=== PATIENT | male | born 1945 | race Caucasian/White ===

== ENCOUNTER 2017-02-11 04:27 | Inpatient (IN) | payer MEDICARE ==
[~2017-02-11] VITALS: Ht 175.3 cm; Wt 81.6 kg
[2017-02-11] MEDS ORDERED: ONDANSETRON 2MG/ML, 2ML ONE (05:26)
[2017-02-11] MEDS ORDERED: MORPHINE SULFATE 4 MG/ML, 1ML ONE ×2 (05:26→06:57)
[2017-02-11] MEDS ORDERED: ONDANSETRON 2MG/ML, 2ML IVPush ONE (05:30)
[2017-02-11] MEDS ORDERED: SODIUM CHLORIDE 0.9% 1,000ML IVBOLUS ONE (05:30)
[2017-02-11] MEDS ORDERED: SODIUM CHLORIDE FLUSH 10ML SYR IVF ONE (05:30)
[2017-02-11] MEDS: MORPHINE SULFATE 4 MG/ML, 1ML IVPush PRN ×2 (05:41→06:59)
[2017-02-11] MEDS ORDERED: NYSTATIN TOPICAL POWDER 15GM TP STA (05:56)
[2017-02-11 06:07] LABS: HEMATOCRIT 43.1 % (39.2-51.8); WHITE BLOOD COUNT 21.1 x10^3/uL (3.4-10)
[2017-02-11 06:15] LABS: ASPARTATE AMINO TRANSFERASE 19 U/L (15-37); BLOOD UREA NITROGEN 23 mg/dL (7-18)
[2017-02-11] MEDS ORDERED: OMNIPAQUE 350 MG/ML, 100ML BOTTLE ONE (06:43)
[2017-02-11] MEDS ORDERED: SODIUM CHLORIDE 0.9% 1,000 ML IV ONE (07:17)
[2017-02-11] MEDS ORDERED: CEFTRIAXONE PMX 1GM/50ML 50 ML IV ONE (07:30)
[2017-02-11] MEDS ORDERED: POTASSIUM CHLORIDE 40 MEQ in SODIUM CHLORIDE 0.9% 500 ML IV ONE (07:30)
[2017-02-11 07:38] LABS: DIFF TOTAL CELLS COUNTED 100 CELL DIFF
[2017-02-11 07:41] LABS: VERIFY COUNTS? YES
[2017-02-11] MEDS ORDERED: LORazepam 2 MG/ML, 1ML ONE (08:17)
[2017-02-11] MEDS ORDERED: CEFTRIAXONE PMX 1GM/50ML 50 ML ONE (08:18)
[2017-02-11] MEDS ORDERED: LORazepam 2 MG/ML, 1ML IVPush ONE (08:30)
[2017-02-11] MEDS ORDERED: NS + 20MEQ KCL 1,000 ML IV SCH (09:51)
[2017-02-11] MEDS ORDERED: morphine SULFATE 10 MG/ML, 1ML IVPush PRN (10:00)
[2017-02-11] MEDS ORDERED: HYDROcodone/APAP 5/325 TABLET PO PRN (10:00)
[2017-02-11] MEDS ORDERED: ACETAMINOPHEN 325 MG TABLET PO PRN (10:00)
[2017-02-11] MEDS: NYSTATIN TOPICAL POWDER 15GM TP SCH ×3 (11:00→21:00)
[2017-02-11] MEDS ORDERED: EPINEPHRINE 1 MG/ML, 1ML ONE (12:11)
[2017-02-11] MEDS ORDERED: BUPIVACAINE/PF 0.5% ONE (12:11)
[2017-02-11] MEDS ORDERED: MAGNESIUM SULFATE PMX 4GM/100M 100 ML IV ONE (12:30)
[2017-02-11 12:37] LABS: BLOOD UREA NITROGEN 20 mg/dL (7-18)
[2017-02-11] MEDS ORDERED: FENTANYL PF 100 MCG/2ML ONE ×4 (13:11→19:13)
[2017-02-11] MEDS ORDERED: MIDAZOLAM 1 MG/ML, 2ML ONE (13:11)
[2017-02-11] MEDS ORDERED: ROCURONIUM 10 MG/ML ONE (13:20)
[2017-02-11] MEDS ORDERED: GLYCOPYRROLATE 0.2MG/1ML, 5ML ONE (13:20)
[2017-02-11] MEDS ORDERED: DEXAMETHASONE 4 MG/ML, 1ML ONE (13:20)
[2017-02-11] MEDS ORDERED: PROPOFOL 10 MG/ML, 20ML ONE (13:20)
[2017-02-11] MEDS ORDERED: morphine SULFATE 10 MG/ML, 1ML IV PRN (14:30)
[2017-02-11] MEDS ORDERED: KETOROLAC 30 MG/1 ML IV PRN (14:30)
[2017-02-11] MEDS ORDERED: METOCLOPRAMIDE 5 MG/ML, 2ML IV PRN (14:30)
[2017-02-11] MEDS ORDERED: LABETALOL 5MG/ML, 20ML IV PRN (14:30)
[2017-02-11] MEDS ORDERED: FENTANYL PF 100 MCG/2ML IV PRN (14:30)
[2017-02-11] MEDS ORDERED: ONDANSETRON 2MG/ML, 2ML IVPush PRN (14:30)
[2017-02-11] MEDS ORDERED: MEPERIDINE/PF 25MG/0.5ML IVPush PRN (14:30)
[2017-02-11] MEDS ORDERED: METOPROLOL 1 MG/ML, 5ML IV PRN (14:30)
[2017-02-11] MEDS ORDERED: MIDAZOLAM 1 MG/ML, 2ML IV PRN (14:30)
[2017-02-11] MEDS: HYDROmorphone 1 MG/ML, 1ML IV PRN ×5 (17:50→19:29)
[2017-02-11] MEDS ORDERED: HYDROmorphone 1 MG/ML, 1ML ONE ×2 (18:24→19:14)
[2017-02-11 20:19] VITALS: BP 105/72
[2017-02-11] MEDS ORDERED: ONDANSETRON 2MG/ML, 2ML IV PRN (21:00)
[2017-02-11] MEDS ORDERED: MORPHINE SULFATE 4 MG/ML, 1ML IV PRN (21:00)
[2017-02-11] MEDS: CEFOTETAN PMX 2GM/50ML 50 ML IV SCH (23:06)
[2017-02-11] MEDS: FAMOTIDINE 20 MG/2 ML IVPush SCH (23:08)
[2017-02-11] MEDS: METRONIDAZOLE PMX 500MG/100ML 100 ML IV SCH (23:09)
[2017-02-11] MEDS: D5%-0.9% NACL+KCL 20MEQ 1,000 ML IV SCH (23:09)
[2017-02-12] VITALS (7 sets, daily range): BP systolic 101–116; BP diastolic 67–76
[2017-02-12 04:48] LABS: HEMATOCRIT 41.2 % (39.2-51.8); HEMOGLOBIN 13.8 g/dL (13.7-18.0); WHITE BLOOD COUNT 32.8 x10^3/uL (3.4-10)
[2017-02-12] MEDS: NYSTATIN TOPICAL POWDER 15GM TP SCH ×4 (04:50→21:00)
[2017-02-12] MEDS: METRONIDAZOLE PMX 500MG/100ML 100 ML IV SCH ×3 (04:50→22:12)
[2017-02-12 05:01] LABS: BLOOD UREA NITROGEN 21 mg/dL (7-18)
[2017-02-12 05:19] LABS: ASPARTATE AMINO TRANSFERASE 85 U/L (15-37)
[2017-02-12 05:35] LABS: DIFF TOTAL CELLS COUNTED 100 CELL DIFF
[2017-02-12 05:37] LABS: VERIFY COUNTS? YES
[2017-02-12] MEDS: D5%-0.9% NACL+KCL 20MEQ 1,000 ML IV SCH (07:30)
[2017-02-12] MEDS ORDERED: CEFTRIAXONE PMX 1GM/50ML 50 ML IV SCH (08:00)
[2017-02-12] MEDS: FAMOTIDINE 20 MG/2 ML IVPush SCH ×2 (08:45→20:46)
[2017-02-12] MEDS: SODIUM CHLORIDE 0.9% 1,000 ML IV SCH ×2 (08:50→17:56)
[2017-02-12] MEDS: CEFOTETAN PMX 2GM/50ML 50 ML IV SCH ×2 (08:55→20:45)
[2017-02-13 01:20] VITALS: BP 126/81
[2017-02-13] MEDS: SODIUM CHLORIDE 0.9% 1,000 ML IV SCH ×2 (03:45→14:44)
[2017-02-13] MEDS: NYSTATIN TOPICAL POWDER 15GM TP SCH ×4 (05:27→21:17)
[2017-02-13] MEDS: METRONIDAZOLE PMX 500MG/100ML 100 ML IV SCH ×3 (05:27→22:01)
[2017-02-13 06:03] LABS: HEMATOCRIT 33.5 % (39.2-51.8); HEMOGLOBIN 11.2 g/dL (13.7-18.0); WHITE BLOOD COUNT 26.8 x10^3/uL (3.4-10)
[2017-02-13 06:21] LABS: DIFF TOTAL CELLS COUNTED 100 CELL DIFF
[2017-02-13 06:24] LABS: VERIFY COUNTS? YES
[2017-02-13 06:29] LABS: ASPARTATE AMINO TRANSFERASE 20 U/L (15-37); BLOOD UREA NITROGEN 20 mg/dL (7-18)
[2017-02-13 09:00] VITALS: BP 118/70
[2017-02-13] MEDS: FAMOTIDINE 20 MG/2 ML IVPush SCH (09:30)
[2017-02-13] MEDS: CEFOTETAN PMX 2GM/50ML 50 ML IV SCH ×2 (09:30→21:19)
[2017-02-13 14:30] VITALS: BP 121/73
[2017-02-13] MEDS ORDERED: FAT EMULSIONS IV SCH (17:00)
[2017-02-13] MEDS ORDERED: SODIUM CHLORIDE 0.9% 1,000 ML IV SCH (17:00)
[2017-02-13] MEDS ORDERED: [UNRECOGNIZED DRUG - OTHER] IV SCH (17:00)
[2017-02-13] MEDS ORDERED: DEXTROSE 70% IV SCH (17:00)
[2017-02-13] MEDS ORDERED: AMINO ACID 10% IV SCH (17:00)
[2017-02-13] MEDS ORDERED: DEXTROSE 10% 500 ML IV PRN (17:00)
[2017-02-13] MEDS ORDERED: DEXTROSE 50%, 50ML SYRINGE IVPush PRN (17:00)
[2017-02-13 19:00] VITALS: BP 118/70
[2017-02-13] MEDS: INSULIN REGULAR MEDIUM DOSE Q6H X 48HRS SQ-INSULIN SCH (21:00)
[2017-02-14 01:00] VITALS: BP 116/66
[2017-02-14] MEDS: INSULIN REGULAR MEDIUM DOSE Q6H X 48HRS SQ-INSULIN SCH ×4 (03:00→20:59)
[2017-02-14] MEDS: METRONIDAZOLE PMX 500MG/100ML 100 ML IV SCH ×3 (05:39→22:11)
[2017-02-14] MEDS: NYSTATIN TOPICAL POWDER 15GM TP SCH ×4 (05:39→21:37)
[2017-02-14 06:21] LABS: HEMATOCRIT 27.9 % (39.2-51.8); HEMOGLOBIN 9.5 g/dL (13.7-18.0); WHITE BLOOD COUNT 19.1 x10^3/uL (3.4-10)
[2017-02-14 06:54] LABS: DIFF TOTAL CELLS COUNTED 100 CELL DIFF
[2017-02-14 06:56] LABS: VERIFY COUNTS? YES
[2017-02-14 06:59] LABS: ASPARTATE AMINO TRANSFERASE 24 U/L (15-37); BLOOD UREA NITROGEN 13 mg/dL (7-18)
[2017-02-14 08:10] VITALS: BP 130/72
[2017-02-14] MEDS ORDERED: POTASSIUM PHOSPHATE 44 MEQ in SODIUM CHLORIDE 0.9% 500 ML IV ONE (09:00)
[2017-02-14] MEDS: CEFOTETAN PMX 2GM/50ML 50 ML IV SCH ×2 (09:36→21:37)
[2017-02-14] MEDS ORDERED: POTASSIUM PHOSPHATE 88 MEQ in SODIUM CHLORIDE 0.9% 1,000 ML IV ONE (11:00)
[2017-02-14 14:30] VITALS: BP 133/74
[2017-02-14] MEDS ORDERED: DEXTROSE 70% IV SCH ×2 (17:00)
[2017-02-14] MEDS ORDERED: FAT EMULSIONS IV SCH ×2 (17:00)
[2017-02-14] MEDS ORDERED: [UNRECOGNIZED DRUG - OTHER] IV SCH (17:00)
[2017-02-14] MEDS ORDERED: [UNRECOGNIZED DRUG - OTHER] IV SCH (17:00)
[2017-02-14] MEDS ORDERED: AMINO ACID 10% IV SCH ×2 (17:00)
[2017-02-14 18:45] VITALS: BP 125/69
[2017-02-15 00:45] VITALS: BP 105/59
[2017-02-15 01:51] VITALS: BP 119/70
[2017-02-15] MEDS: INSULIN REGULAR MEDIUM DOSE Q6H X 48HRS SQ-INSULIN SCH ×3 (03:12→15:00)
[2017-02-15 04:36] LABS: HEMOGLOBIN 9.1 g/dL (13.7-18.0)
[2017-02-15 04:45] LABS: BLOOD UREA NITROGEN 10 mg/dL (7-18)
[2017-02-15] MEDS: NYSTATIN TOPICAL POWDER 15GM TP SCH ×4 (05:22→21:02)
[2017-02-15] MEDS: METRONIDAZOLE PMX 500MG/100ML 100 ML IV SCH ×3 (05:22→21:02)
[2017-02-15 07:46] VITALS: BP 129/70
[2017-02-15] MEDS: CEFOTETAN PMX 2GM/50ML 50 ML IV SCH ×2 (11:49→23:21)
[2017-02-15 12:35] VITALS: BP 125/65
[2017-02-15] MEDS: ENOXAPARIN 30 MG/0.3 ML SQ SCH ×2 (13:16→23:21)
[2017-02-15] MEDS ORDERED: DEXTROSE 70% IV SCH (17:00)
[2017-02-15] MEDS ORDERED: FAT EMULSIONS IV SCH (17:00)
[2017-02-15] MEDS ORDERED: [UNRECOGNIZED DRUG - OTHER] IV SCH (17:00)
[2017-02-15] MEDS ORDERED: AMINO ACID 10% IV SCH (17:00)
[2017-02-15] MEDS: FILTER, DISP 1.2 MICRON FOR TPN/PVN IV PRN (18:41)
[2017-02-15 19:36] VITALS: BP 149/84
[2017-02-16 02:20] VITALS: BP 110/72
[2017-02-16 05:04] LABS: BLOOD UREA NITROGEN 12 mg/dL (7-18)
[2017-02-16] MEDS: NYSTATIN TOPICAL POWDER 15GM TP SCH ×4 (05:09→21:37)
[2017-02-16] MEDS: METRONIDAZOLE PMX 500MG/100ML 100 ML IV SCH ×3 (05:09→21:37)
[2017-02-16 06:47] VITALS: BP 131/73
[2017-02-16] MEDS: INSULIN REGULAR MEDIUM DOSE QDAY SQ-INSULIN SCH (09:00)
[2017-02-16] MEDS: ENOXAPARIN 30 MG/0.3 ML SQ SCH ×2 (10:46→23:25)
[2017-02-16] MEDS: CEFOTETAN PMX 2GM/50ML 50 ML IV SCH ×2 (11:00→23:25)
[2017-02-16 12:27] VITALS: BP 130/79
[2017-02-16] MEDS: DEXTROSE 70% IV SCH ×2 (18:36→18:45)
[2017-02-16] MEDS: AMINO ACID 10% IV SCH ×2 (18:36→18:45)
[2017-02-16] MEDS: [UNRECOGNIZED DRUG - OTHER] IV SCH ×2 (18:36→18:45)
[2017-02-16] MEDS: FAT EMULSIONS IV SCH ×2 (18:36→18:45)
[2017-02-16] MEDS: FILTER, DISP 1.2 MICRON FOR TPN/PVN IV PRN (18:45)
[2017-02-16] MEDS ORDERED: ACETAMINOPHEN 325 MG TABLET PO PRN (19:30)
[2017-02-16] MEDS ORDERED: DEXTROSE 10% 500 ML IV PRN (19:30)
[2017-02-16] MEDS ORDERED: DEXTROSE 50%, 50ML SYRINGE IVPush PRN (19:30)
[2017-02-16 21:40] VITALS: BP 117/76
[2017-02-17 01:30] VITALS: BP 124/77
[2017-02-17] MEDS: NYSTATIN TOPICAL POWDER 15GM TP SCH ×4 (05:44→21:21)
[2017-02-17] MEDS: METRONIDAZOLE PMX 500MG/100ML 100 ML IV SCH ×3 (05:44→23:27)
[2017-02-17 06:13] LABS: HEMATOCRIT 34.1 % (39.2-51.8); HEMOGLOBIN 11.5 g/dL (13.7-18.0)
[2017-02-17 06:39] LABS: BLOOD UREA NITROGEN 14 mg/dL (7-18)
[2017-02-17 06:56] LABS: DIFF TOTAL CELLS COUNTED 100 CELL DIFF
[2017-02-17 06:57] LABS: POLYCHROMASIA 1+; VERIFY COUNTS? YES
[2017-02-17] MEDS: ONDANSETRON 2MG/ML, 2ML IV PRN ×2 (07:26→13:07)
[2017-02-17 07:40] VITALS: BP 123/79
[2017-02-17] MEDS: INSULIN REGULAR MEDIUM DOSE QDAY SQ-INSULIN SCH (09:00)
[2017-02-17] MEDS ORDERED: OMNIPAQUE 350 MG/ML, 100ML BOTTLE ONE (12:19)
[2017-02-17 12:45] VITALS: BP 152/83
[2017-02-17] MEDS: ENOXAPARIN 30 MG/0.3 ML SQ SCH (13:45)
[2017-02-17] MEDS: CEFOTETAN PMX 2GM/50ML 50 ML IV SCH (13:45)
[2017-02-17] MEDS ORDERED: [UNRECOGNIZED DRUG - OTHER] IV SCH (17:00)
[2017-02-17] MEDS ORDERED: DEXTROSE 70% IV SCH (17:00)
[2017-02-17] MEDS ORDERED: FAT EMULSIONS IV SCH (17:00)
[2017-02-17] MEDS ORDERED: AMINO ACID 10% IV SCH (17:00)
[2017-02-17 20:28] VITALS: BP 132/70
[2017-02-18] MEDS: ENOXAPARIN 30 MG/0.3 ML SQ SCH ×2 (02:07→14:10)
[2017-02-18] MEDS: CEFOTETAN PMX 2GM/50ML 50 ML IV SCH ×2 (02:07→14:10)
[2017-02-18 04:22] VITALS: BP 116/56
[2017-02-18 06:28] LABS: HEMATOCRIT 28.5 % (39.2-51.8); HEMOGLOBIN 9.7 g/dL (13.7-18.0); WHITE BLOOD COUNT 16.3 x10^3/uL (3.4-10)
[2017-02-18] MEDS: METRONIDAZOLE PMX 500MG/100ML 100 ML IV SCH ×3 (06:36→23:38)
[2017-02-18] MEDS: NYSTATIN TOPICAL POWDER 15GM TP SCH ×4 (06:36→22:34)
[2017-02-18 06:55] LABS: ASPARTATE AMINO TRANSFERASE 21 U/L (15-37); BLOOD UREA NITROGEN 15 mg/dL (7-18)
[2017-02-18 07:40] VITALS: BP 116/64
[2017-02-18] MEDS: INSULIN REGULAR MEDIUM DOSE QDAY SQ-INSULIN SCH (09:00)
[2017-02-18 12:55] VITALS: BP 113/67
[2017-02-18] MEDS ORDERED: AMINO ACID 10% IV SCH (17:00)
[2017-02-18] MEDS ORDERED: [UNRECOGNIZED DRUG - OTHER] IV SCH (17:00)
[2017-02-18] MEDS ORDERED: FAT EMULSIONS IV SCH (17:00)
[2017-02-18] MEDS ORDERED: DEXTROSE 70% IV SCH (17:00)
[2017-02-18] MEDS: SODIUM CHLORIDE 0.9% 1,000 ML IV SCH (17:20)
[2017-02-18] MEDS: FILTER, DISP 1.2 MICRON FOR TPN/PVN IV PRN (17:20)
[2017-02-18 20:40] VITALS: BP 124/64
[2017-02-19] MEDS: ENOXAPARIN 30 MG/0.3 ML SQ SCH ×2 (01:52→13:26)
[2017-02-19] MEDS: CEFOTETAN PMX 2GM/50ML 50 ML IV SCH ×2 (01:52→13:26)
[2017-02-19 02:28] VITALS: BP 128/67
[2017-02-19 06:14] LABS: HEMATOCRIT 28.3 % (39.2-51.8); HEMOGLOBIN 9.5 g/dL (13.7-18.0); WHITE BLOOD COUNT 14.4 x10^3/uL (3.4-10)
[2017-02-19 06:32] LABS: ASPARTATE AMINO TRANSFERASE 17 U/L (15-37); BLOOD UREA NITROGEN 12 mg/dL (7-18)
[2017-02-19] MEDS: METRONIDAZOLE PMX 500MG/100ML 100 ML IV SCH ×3 (06:43→22:33)
[2017-02-19] MEDS: NYSTATIN TOPICAL POWDER 15GM TP SCH ×4 (06:43→20:33)
[2017-02-19 07:02] VITALS: BP 128/64
[2017-02-19] MEDS: INSULIN REGULAR MEDIUM DOSE QDAY SQ-INSULIN SCH (09:00)
[2017-02-19] MEDS ORDERED: BISACODYL 10 MG SUPP PR ONE (11:30)
[2017-02-19 13:17] VITALS: BP 131/61
[2017-02-19] MEDS ORDERED: FAT EMULSIONS IV SCH (17:00)
[2017-02-19] MEDS ORDERED: DEXTROSE 70% IV SCH (17:00)
[2017-02-19] MEDS ORDERED: AMINO ACID 10% IV SCH (17:00)
[2017-02-19] MEDS ORDERED: [UNRECOGNIZED DRUG - OTHER] IV SCH (17:00)
[2017-02-19 21:03] VITALS: BP 126/65
[2017-02-20] MEDS: CEFOTETAN PMX 2GM/50ML 50 ML IV SCH ×2 (01:53→14:34)
[2017-02-20] MEDS: ENOXAPARIN 30 MG/0.3 ML SQ SCH ×2 (01:53→14:34)
[2017-02-20 02:09] VITALS: BP 115/67
[2017-02-20] MEDS: METRONIDAZOLE PMX 500MG/100ML 100 ML IV SCH ×3 (06:35→23:27)
[2017-02-20] MEDS: NYSTATIN TOPICAL POWDER 15GM TP SCH ×4 (06:35→20:20)
[2017-02-20 07:00] LABS: BLOOD UREA NITROGEN 11 mg/dL (7-18)
[2017-02-20 07:05] VITALS: BP 123/72
[2017-02-20] MEDS: INSULIN REGULAR MEDIUM DOSE QDAY SQ-INSULIN SCH (09:00)
[2017-02-20] MEDS: METOCLOPRAMIDE 5 MG/ML, 2ML IV SCH ×3 (09:58→23:35)
[2017-02-20] MEDS ORDERED: [UNRECOGNIZED DRUG - OTHER] IV SCH ×2 (11:30→17:00)
[2017-02-20] MEDS ORDERED: AMINO ACID 10% IV SCH ×2 (11:30→17:00)
[2017-02-20] MEDS ORDERED: FAT EMULSIONS IV SCH ×2 (11:30→17:00)
[2017-02-20] MEDS ORDERED: DEXTROSE 70% IV SCH ×2 (11:30→17:00)
[2017-02-20 13:09] VITALS: BP 131/72
[2017-02-20] MEDS: FILTER, DISP 1.2 MICRON FOR TPN/PVN IV PRN (17:28)
[2017-02-20 20:41] VITALS: BP 117/65
[2017-02-21] MEDS: CEFOTETAN PMX 2GM/50ML 50 ML IV SCH ×2 (01:52→13:22)
[2017-02-21] MEDS: ENOXAPARIN 30 MG/0.3 ML SQ SCH ×2 (01:52→13:22)
[2017-02-21 04:12] VITALS: BP 113/66
[2017-02-21] MEDS ORDERED: CATHFLO-ALTEPLASE 2 MG/2 ML CATHFLUSH ONE (04:30)
[2017-02-21] MEDS: NYSTATIN TOPICAL POWDER 15GM TP SCH ×4 (05:01→20:30)
[2017-02-21 06:00] LABS: HEMOGLOBIN 9.4 g/dL (13.7-18.0); WHITE BLOOD COUNT 12.7 x10^3/uL (3.4-10)
[2017-02-21 06:21] LABS: BLOOD UREA NITROGEN 11 mg/dL (7-18)
[2017-02-21 07:03] VITALS: BP 119/58
[2017-02-21] MEDS: METOCLOPRAMIDE 5 MG/ML, 2ML IV SCH ×2 (07:55→15:21)
[2017-02-21] MEDS: METRONIDAZOLE PMX 500MG/100ML 100 ML IV SCH ×3 (07:55→22:57)
[2017-02-21] MEDS: INSULIN REGULAR MEDIUM DOSE QDAY SQ-INSULIN SCH (09:00)
[2017-02-21 14:38] VITALS: BP 152/73
[2017-02-21] MEDS ORDERED: FAT EMULSIONS IV SCH (17:00)
[2017-02-21] MEDS ORDERED: AMINO ACID 10% IV SCH (17:00)
[2017-02-21] MEDS ORDERED: DEXTROSE 70% IV SCH (17:00)
[2017-02-21] MEDS ORDERED: [UNRECOGNIZED DRUG - OTHER] IV SCH (17:00)
[2017-02-21] MEDS: FILTER, DISP 1.2 MICRON FOR TPN/PVN IV PRN (17:21)
[2017-02-21 20:06] VITALS: BP 138/55
[2017-02-22] MEDS: METOCLOPRAMIDE 5 MG/ML, 2ML IV SCH ×4 (00:06→23:05)
[2017-02-22 00:55] VITALS: BP 144/72
[2017-02-22] MEDS: CEFOTETAN PMX 2GM/50ML 50 ML IV SCH ×2 (01:28→13:31)
[2017-02-22] MEDS: ENOXAPARIN 30 MG/0.3 ML SQ SCH ×2 (01:28→13:32)
[2017-02-22] MEDS: SODIUM CHLORIDE 0.9% 1,000 ML IV SCH (05:15)
[2017-02-22] MEDS: NYSTATIN TOPICAL POWDER 15GM TP SCH ×4 (05:17→21:09)
[2017-02-22 06:41] LABS: BLOOD UREA NITROGEN 9 mg/dL (7-18)
[2017-02-22 06:42] LABS: HEMATOCRIT 27.9 % (39.2-51.8); HEMOGLOBIN 9.5 g/dL (13.7-18.0); WHITE BLOOD COUNT 11.1 x10^3/uL (3.4-10)
[2017-02-22] MEDS: METRONIDAZOLE PMX 500MG/100ML 100 ML IV SCH ×3 (06:44→23:05)
[2017-02-22 07:14] VITALS: BP 130/74
[2017-02-22] MEDS: INSULIN REGULAR MEDIUM DOSE QDAY SQ-INSULIN SCH (09:00)
[2017-02-22] MEDS ORDERED: TPN PER PHARMACY MC PRN (11:30)
[2017-02-22 12:15] VITALS: BP 151/72
[2017-02-22] MEDS: FILTER, DISP 1.2 MICRON FOR TPN/PVN IV PRN (16:25)
[2017-02-22] MEDS ORDERED: FAT EMULSIONS IV SCH (17:00)
[2017-02-22] MEDS ORDERED: AMINO ACID 10% IV SCH (17:00)
[2017-02-22] MEDS ORDERED: [UNRECOGNIZED DRUG - OTHER] IV SCH (17:00)
[2017-02-22] MEDS ORDERED: DEXTROSE 70% IV SCH (17:00)
[2017-02-22 21:22] VITALS: BP 146/76
[2017-02-23 01:10] VITALS: BP 133/74
[2017-02-23] MEDS: ENOXAPARIN 30 MG/0.3 ML SQ SCH ×2 (01:18→12:34)
[2017-02-23] MEDS: CEFOTETAN PMX 2GM/50ML 50 ML IV SCH ×2 (01:18→12:33)
[2017-02-23] MEDS: NYSTATIN TOPICAL POWDER 15GM TP SCH ×4 (05:30→20:37)
[2017-02-23] MEDS: METRONIDAZOLE PMX 500MG/100ML 100 ML IV SCH ×3 (06:48→23:46)
[2017-02-23] MEDS: METOCLOPRAMIDE 5 MG/ML, 2ML IV SCH ×3 (07:46→23:46)
[2017-02-23 08:22] VITALS: BP 126/69
[2017-02-23] MEDS: INSULIN REGULAR MEDIUM DOSE QDAY SQ-INSULIN SCH (09:00)
[2017-02-23] MEDS ORDERED: TPN PER PHARMACY MC PRN (10:00)
[2017-02-23 13:06] VITALS: BP 146/77
[2017-02-23] MEDS: SODIUM CHLORIDE 0.9% 1,000 ML IV SCH (13:26)
[2017-02-23] MEDS: FILTER, DISP 1.2 MICRON FOR TPN/PVN IV PRN (16:26)
[2017-02-23] MEDS ORDERED: AMINO ACID 10% IV SCH (17:00)
[2017-02-23] MEDS ORDERED: [UNRECOGNIZED DRUG - OTHER] IV SCH (17:00)
[2017-02-23] MEDS ORDERED: FAT EMULSIONS IV SCH (17:00)
[2017-02-23] MEDS ORDERED: DEXTROSE 70% IV SCH (17:00)
[2017-02-23] MEDS ORDERED: ACETAMINOPHEN 325 MG TABLET PO PRN (19:00)
[2017-02-23 20:01] VITALS: BP 158/74
[2017-02-24] MEDS: ENOXAPARIN 30 MG/0.3 ML SQ SCH ×2 (01:30→13:43)
[2017-02-24] MEDS: CEFOTETAN PMX 2GM/50ML 50 ML IV SCH ×2 (01:30→13:48)
[2017-02-24 01:39] VITALS: BP 116/64
[2017-02-24] MEDS: NYSTATIN TOPICAL POWDER 15GM TP SCH ×4 (06:00→21:44)
[2017-02-24 06:10] LABS: BLOOD UREA NITROGEN 8 mg/dL (7-18); HEMATOCRIT 27.1 % (39.2-51.8); HEMOGLOBIN 9.2 g/dL (13.7-18.0); WHITE BLOOD COUNT 8.4 x10^3/uL (3.4-10)
[2017-02-24] MEDS: METRONIDAZOLE PMX 500MG/100ML 100 ML IV SCH ×3 (06:41→23:29)
[2017-02-24 06:49] VITALS: BP 133/71
[2017-02-24] MEDS: METOCLOPRAMIDE 5 MG/ML, 2ML IV SCH ×3 (08:38→23:29)
[2017-02-24] MEDS: POLYETHYLENE GLYCOL 17 GM PACKET PO SCH (08:39)
[2017-02-24] MEDS: INSULIN REGULAR MEDIUM DOSE QDAY SQ-INSULIN SCH (08:39)
[2017-02-24] MEDS ORDERED: POLYETHYLENE GLYCOL 17 GM PACKET PO SCH ×2 (09:00)
[2017-02-24 12:54] VITALS: BP 130/64
[2017-02-24] MEDS ORDERED: AMINO ACID 10% IV SCH (17:00)
[2017-02-24] MEDS ORDERED: FAT EMULSIONS IV SCH (17:00)
[2017-02-24] MEDS ORDERED: DEXTROSE 70% IV SCH (17:00)
[2017-02-24] MEDS ORDERED: [UNRECOGNIZED DRUG - OTHER] IV SCH (17:00)
[2017-02-24 19:20] VITALS: BP 138/70
[2017-02-24] MEDS: FAMOTIDINE 20 MG TABLET PO SCH (21:44)
[2017-02-25] MEDS: ENOXAPARIN 30 MG/0.3 ML SQ SCH ×2 (01:43→13:57)
[2017-02-25] MEDS: CEFOTETAN PMX 2GM/50ML 50 ML IV SCH ×2 (01:44→13:56)
[2017-02-25 01:51] VITALS: BP 113/70
[2017-02-25] MEDS: NYSTATIN TOPICAL POWDER 15GM TP SCH ×4 (05:19→20:36)
[2017-02-25 06:24] LABS: ASPARTATE AMINO TRANSFERASE 26 U/L (15-37); BLOOD UREA NITROGEN 9 mg/dL (7-18)
[2017-02-25 07:05] VITALS: BP 126/73
[2017-02-25] MEDS: METRONIDAZOLE PMX 500MG/100ML 100 ML IV SCH ×3 (07:17→23:19)
[2017-02-25] MEDS: METOCLOPRAMIDE 5 MG/ML, 2ML IV SCH ×3 (08:50→23:19)
[2017-02-25] MEDS: POLYETHYLENE GLYCOL 17 GM PACKET PO SCH (08:50)
[2017-02-25] MEDS: FAMOTIDINE 20 MG TABLET PO SCH ×2 (08:50→20:36)
[2017-02-25 12:57] VITALS: BP 105/65
[2017-02-25 19:35] VITALS: BP 107/60
[2017-02-26] MEDS: CEFOTETAN PMX 2GM/50ML 50 ML IV SCH (01:57)
[2017-02-26] MEDS: ENOXAPARIN 30 MG/0.3 ML SQ SCH ×2 (01:57→15:02)
[2017-02-26 02:11] VITALS: BP 112/65
[2017-02-26] MEDS: NYSTATIN TOPICAL POWDER 15GM TP SCH ×4 (05:26→20:20)
[2017-02-26 05:48] LABS: HEMATOCRIT 25.5 % (39.2-51.8); HEMOGLOBIN 8.8 g/dL (13.7-18.0); WHITE BLOOD COUNT 6.7 x10^3/uL (3.4-10)
[2017-02-26 05:57] LABS: BLOOD UREA NITROGEN 9 mg/dL (7-18)
[2017-02-26] MEDS: METRONIDAZOLE PMX 500MG/100ML 100 ML IV SCH (06:40)
[2017-02-26] MEDS: METOCLOPRAMIDE 5 MG/ML, 2ML IV SCH ×3 (07:30→20:20)
[2017-02-26 07:45] VITALS: BP 117/72
[2017-02-26 13:59] VITALS: BP 111/71
[2017-02-26 19:58] VITALS: BP 116/68
[2017-02-27] MEDS: ENOXAPARIN 30 MG/0.3 ML SQ SCH ×2 (03:06→14:11)
[2017-02-27 03:20] VITALS: BP 116/71
[2017-02-27] MEDS: NYSTATIN TOPICAL POWDER 15GM TP SCH ×4 (05:47→20:26)
[2017-02-27 07:30] VITALS: BP 112/70
[2017-02-27 15:00] VITALS: BP 117/69
[2017-02-27 19:11] VITALS: BP 109/60
[2017-02-28 01:28] VITALS: BP 102/66
[2017-02-28] MEDS: ENOXAPARIN 30 MG/0.3 ML SQ SCH ×2 (02:07→14:22)
[2017-02-28] MEDS: NYSTATIN TOPICAL POWDER 15GM TP SCH ×3 (05:04→16:00)
[2017-02-28 07:30] VITALS: BP 110/70
[2017-02-28] MEDS ORDERED: HYDR-3241 PO (13:29)
[2017-02-28] MEDS ORDERED: NYST60PO TP (13:29)
[2017-02-28] MEDS ORDERED: ONDA4TAB13 SL (13:29)
[2017-02-28] MEDS ORDERED: POLY17PO5 PO (13:29)
[2017-02-28] MEDS ORDERED: TRAM50TA2 PO (13:29)
[2017-02-28 14:10] VITALS: BP 104/68
== END 2017-02-28 17:14 | DRG 329 ==
LOC: ED 06:11 → EDIP 08:38 → 5SO 20:20 → 4NOR 02-15 00:20
PROVIDERS: ADMIT Urology; ATTEND Urology
PROC: 0DB80ZZ Excision of Small Intestine, Open Approach (ICD-10-PCS; 2017-02-11)
PROC: 0VT90ZZ Resection of Right Testis, Open Approach (ICD-10-PCS; 2017-02-11)
PROC: 0DBK0ZZ Excision of Ascending Colon, Open Approach (ICD-10-PCS; 2017-02-11)
PROC: 0WJG4ZZ Inspection of Peritoneal Cavity, Percutaneous Endoscopic Approach (ICD-10-PCS; 2017-02-11)
PROC: 0WQF0ZZ Repair Abdominal Wall, Open Approach (ICD-10-PCS; 2017-02-11)
PROC: 0YQ50ZZ Repair Right Inguinal Region, Open Approach (ICD-10-PCS; 2017-02-11)
PROC: 0YJ54ZZ Inspection of Right Inguinal Region, Percutaneous Endoscopic Approach (ICD-10-PCS; 2017-02-11)
PROC: 0DTF0ZZ Resection of Right Large Intestine, Open Approach (ICD-10-PCS; 2017-02-11)
PROC: 8E0W4CZ Robotic Assisted Procedure of Trunk Region, Percutaneous Endoscopic Approach (ICD-10-PCS; 2017-02-11)
PROC: 0DBH0ZZ Excision of Cecum, Open Approach (ICD-10-PCS; principal; 2017-02-11 13:00)
PROC: 02HV33Z Insertion of Infusion Device into Superior Vena Cava, Percutaneous Approach (ICD-10-PCS; 2017-02-13)
PROC: B548ZZA Ultrasonography of Superior Vena Cava, Guidance (ICD-10-PCS; 2017-02-13)
DX: K40.30 Unilateral inguinal hernia, with obstruction, without gangrene, not specified as recurrent (principal); E43 Unspecified severe protein-calorie malnutrition; K63.1 Perforation of intestine (nontraumatic); E87.8 Other disorders of electrolyte and fluid balance, not elsewhere classified; R65.10 Systemic inflammatory response syndrome (SIRS) of non-infectious origin without acute organ dysfunction; K56.7 Ileus, unspecified; E87.1 Hypo-osmolality and hyponatremia; E86.0 Dehydration; E83.39 Other disorders of phosphorus metabolism; B37.2 Candidiasis of skin and nail; E87.6 Hypokalemia; K42.9 Umbilical hernia without obstruction or gangrene; N50.89 Other specified disorders of the male genital organs; Z87.891 Personal history of nicotine dependence; Z53.31 Laparoscopic surgical procedure converted to open procedure
CPT/HCPCS: 36415; 36569; 71010; 74000; 74177; 76937; 77001; 80048; 80053; 81001; 82010; 82140; 82533; 82607; 82746; 82962; 83605; 83690; 83735; 84100; 84134; 84443; 84478; 85025; 85610; 87040; 87324; 88304; 88305; 88307; 93005; 96361; 96365; 96375; 96376; J0171; J0610; J0696; J1100; J1170; J1650; J2250; J2270; J2405; J2704; J2997; J3010; J3475; J3480; J3490; Q9967; C1751; J2060; J2765; J3420; J7030; J7040; S0028; S0074

== ENCOUNTER 2017-03-06 20:47 | Inpatient (IN) | payer MEDICARE ==
[~2017-03-06] VITALS: Ht 175.3 cm; Wt 59.5 kg
[~2017-03-06 20:47] MED LIST: HYDR-3241 PO; NYST60PO TP; ONDA4TAB13 SL; POLY17PO5 PO; TRAM50TA2 PO
[2017-03-06] MEDS ORDERED: SODIUM CHLORIDE FLUSH 10ML SYR IVF ONE (22:00)
[2017-03-06] MEDS ORDERED: SODIUM CHLORIDE 0.9% 1,000ML IVBOLUS ONE (22:00)
[2017-03-06] MEDS ORDERED: ONDANSETRON 2MG/ML, 2ML IVPush ONE (22:00)
[2017-03-06] MEDS ORDERED: MORPHINE SULFATE 4 MG/ML, 1ML IVPush PRN (22:00)
[2017-03-06] MEDS ORDERED: DOCU100T3 PO (22:14)
[2017-03-06 22:21] LABS: HEMATOCRIT 32.6 % (39.2-51.8); WHITE BLOOD COUNT 14.2 x10^3/uL (3.4-10)
[2017-03-06 23:26] LABS: ASPARTATE AMINO TRANSFERASE 129 U/L (15-37); BLOOD UREA NITROGEN 13 mg/dL (7-18)
[2017-03-06] MEDS ORDERED: OMNIPAQUE 350 MG/ML, 100ML BOTTLE ONE (23:45)
[2017-03-07] MEDS: SODIUM CHLORIDE 0.9% 1,000 ML IV SCH ×2 (00:17→18:00)
[2017-03-07] MEDS ORDERED: ONDANSETRON 2MG/ML, 2ML IVPush PRN (00:30)
[2017-03-07] MEDS ORDERED: ACETAMINOPHEN 325 MG TABLET PO PRN (00:30)
[2017-03-07] MEDS ORDERED: morphine SULFATE 10 MG/ML, 1ML IVPush PRN (00:30)
[2017-03-07 01:15] VITALS: BP 132/83
[2017-03-07] MEDS: HEPARIN 5,000 UNITS/ML, 1ML SQ SCH ×3 (02:48→18:30)
[2017-03-07 03:05] VITALS: BP 132/83
[2017-03-07 05:42] LABS: HEMATOCRIT 27.3 % (39.2-51.8); HEMOGLOBIN 9.4 g/dL (13.7-18.0); WHITE BLOOD COUNT 12.3 x10^3/uL (3.4-10)
[2017-03-07 06:19] LABS: ASPARTATE AMINO TRANSFERASE 92 U/L (15-37); BLOOD UREA NITROGEN 10 mg/dL (7-18)
[2017-03-07 06:37] VITALS: BP 127/77
[2017-03-07] MEDS: BISACODYL 10 MG SUPP PR SCH ×2 (10:00→20:55)
[2017-03-07] MEDS ORDERED: OMNIPAQUE 350 MG/ML, 150 ML BOTTLE ONE (13:58)
[2017-03-07 18:31] VITALS: BP 115/75
[2017-03-08 01:11] VITALS: BP 99/65
[2017-03-08] MEDS: SODIUM CHLORIDE 0.9% 1,000 ML IV SCH ×3 (02:02→20:34)
[2017-03-08] MEDS: HEPARIN 5,000 UNITS/ML, 1ML SQ SCH ×3 (02:14→18:06)
[2017-03-08 05:02] LABS: HEMATOCRIT 27.5 % (39.2-51.8); HEMOGLOBIN 9.2 g/dL (13.7-18.0); WHITE BLOOD COUNT 11.9 x10^3/uL (3.4-10)
[2017-03-08 05:07] LABS: BLOOD UREA NITROGEN 15 mg/dL (7-18)
[2017-03-08 06:52] VITALS: BP 115/65
[2017-03-08] MEDS: BISACODYL 10 MG SUPP PR SCH ×2 (10:00→20:33)
[2017-03-08 14:40] VITALS: BP 144/81
[2017-03-08 20:15] VITALS: BP 120/73
[2017-03-09] MEDS: HEPARIN 5,000 UNITS/ML, 1ML SQ SCH ×3 (02:25→17:59)
[2017-03-09 02:53] VITALS: BP 125/76
[2017-03-09] MEDS: SODIUM CHLORIDE 0.9% 1,000 ML IV SCH (04:25)
[2017-03-09 06:04] LABS: HEMATOCRIT 26.4 % (39.2-51.8); WHITE BLOOD COUNT 11.8 x10^3/uL (3.4-10)
[2017-03-09 06:09] LABS: BLOOD UREA NITROGEN 15 mg/dL (7-18)
[2017-03-09 08:14] VITALS: BP 129/75
[2017-03-09] MEDS ORDERED: D5%-0.45NACL+KCL 20MEQ 1,000 ML IV SCH ×2 (10:00→21:30)
[2017-03-09] MEDS ORDERED: D5%-0.9% NACL+KCL 20MEQ 1,000 ML IV SCH (10:00)
[2017-03-09] MEDS: BISACODYL 10 MG SUPP PR SCH ×2 (10:36→21:20)
[2017-03-09 13:45] VITALS: BP 124/64
[2017-03-09 20:04] VITALS: BP 119/68
[2017-03-09] MEDS ORDERED: ACETAMINOPHEN 325 MG TABLET PO PRN (21:00)
[2017-03-09] MEDS ORDERED: morphine SULFATE 10 MG/ML, 1ML IVPush PRN (21:00)
[2017-03-09] MEDS ORDERED: ONDANSETRON 2MG/ML, 2ML IVPush PRN (21:00)
[2017-03-10 02:37] VITALS: BP 108/67
[2017-03-10] MEDS: HEPARIN 5,000 UNITS/ML, 1ML SQ SCH ×3 (02:52→17:25)
[2017-03-10 05:26] LABS: HEMATOCRIT 25.7 % (39.2-51.8); HEMOGLOBIN 8.9 g/dL (13.7-18.0); WHITE BLOOD COUNT 9.7 x10^3/uL (3.4-10)
[2017-03-10 05:40] LABS: BLOOD UREA NITROGEN 10 mg/dL (7-18)
[2017-03-10 08:00] VITALS: BP 112/53
[2017-03-10] MEDS: BISACODYL 10 MG SUPP PR SCH ×2 (09:35→21:46)
[2017-03-10] MEDS ORDERED: D5%-0.45NACL+KCL 20MEQ 1,000 ML IV SCH (10:00)
[2017-03-10 14:07] VITALS: BP 110/67
[2017-03-10 20:57] VITALS: BP 152/76
[2017-03-11 01:54] VITALS: BP 119/72
[2017-03-11] MEDS: HEPARIN 5,000 UNITS/ML, 1ML SQ SCH ×3 (02:41→17:31)
[2017-03-11 06:04] LABS: HEMATOCRIT 26.4 % (39.2-51.8); WHITE BLOOD COUNT 8.5 x10^3/uL (3.4-10)
[2017-03-11 06:13] LABS: BLOOD UREA NITROGEN 10 mg/dL (7-18)
[2017-03-11 07:01] VITALS: BP 119/72
[2017-03-11] MEDS ORDERED: POTASSIUM CHLORIDE 40 MEQ in SODIUM CHLORIDE 0.9% 500 ML IV ONE (07:30)
[2017-03-11] MEDS: BISACODYL 10 MG SUPP PR SCH ×2 (09:24→21:33)
[2017-03-11 12:30] VITALS: BP 140/77
[2017-03-11 19:32] VITALS: BP 128/79
[2017-03-12 02:19] VITALS: BP 114/75
[2017-03-12] MEDS: HEPARIN 5,000 UNITS/ML, 1ML SQ SCH ×3 (03:06→17:56)
[2017-03-12 05:44] LABS: HEMATOCRIT 29.3 % (39.2-51.8); HEMOGLOBIN 9.9 g/dL (13.7-18.0); WHITE BLOOD COUNT 14.1 x10^3/uL (3.4-10)
[2017-03-12 05:49] LABS: BLOOD UREA NITROGEN 10 mg/dL (7-18)
[2017-03-12 07:32] VITALS: BP 115/74
[2017-03-12] MEDS: BISACODYL 10 MG SUPP PR SCH ×2 (10:12→19:44)
[2017-03-12] MEDS: METOCLOPRAMIDE 5 MG/ML, 2ML IV SCH ×2 (12:52→19:44)
[2017-03-12 14:38] VITALS: BP 136/78
[2017-03-12] MEDS ORDERED: OMNIPAQUE 350 MG/ML, 150 ML BOTTLE ONE (16:06)
[2017-03-12 19:23] VITALS: BP 118/72
[2017-03-12] MEDS: NITROFURANTOIN (MACROBID) 100 MG CAPSULE PO SCH (19:44)
[2017-03-13 02:29] VITALS: BP 120/77
[2017-03-13] MEDS: HEPARIN 5,000 UNITS/ML, 1ML SQ SCH ×2 (03:33→10:35)
[2017-03-13] MEDS: METOCLOPRAMIDE 5 MG/ML, 2ML IV SCH ×2 (03:33→12:05)
[2017-03-13 05:35] LABS: HEMATOCRIT 28.9 % (39.2-51.8); HEMOGLOBIN 9.9 g/dL (13.7-18.0)
[2017-03-13 05:47] LABS: BLOOD UREA NITROGEN 10 mg/dL (7-18)
[2017-03-13 08:00] VITALS: BP 113/72
[2017-03-13] MEDS: BISACODYL 10 MG SUPP PR SCH (09:25)
[2017-03-13] MEDS: NITROFURANTOIN (MACROBID) 100 MG CAPSULE PO SCH ×2 (09:25→21:00)
[2017-03-13 12:45] VITALS: BP 119/75
[2017-03-13] MEDS ORDERED: FENTANYL PF 100 MCG/2ML ONE ×2 (18:05→21:26)
[2017-03-13] MEDS ORDERED: MIDAZOLAM 1 MG/ML, 2ML ONE (18:05)
[2017-03-13] MEDS ORDERED: ROCURONIUM 10 MG/ML ONE ×4 (18:39)
[2017-03-13] MEDS ORDERED: PHENYLEPHRINE 10 MG/ML ONE (18:39)
[2017-03-13] MEDS ORDERED: ONDANSETRON 2MG/ML, 2ML ONE (19:59)
[2017-03-13] MEDS ORDERED: NEOSTIGMINE 1 MG/ML, 10ML ONE (19:59)
[2017-03-13] MEDS ORDERED: GLYCOPYRROLATE 0.2MG/1ML, 5ML ONE (19:59)
[2017-03-13] MEDS ORDERED: PROPOFOL 10 MG/ML, 20ML ONE (19:59)
[2017-03-13] MEDS ORDERED: SUCCINYLCHOLINE 20 MG/ML, 10ML ONE (19:59)
[2017-03-13] MEDS ORDERED: DEXAMETHASONE 4 MG/ML, 1ML ONE (19:59)
[2017-03-13] MEDS ORDERED: CEFOTETAN PMX 1GM/50ML 50 ML ONE (20:00)
[2017-03-13] MEDS ORDERED: ONDANSETRON 2MG/ML, 2ML IVPush PRN (21:00)
[2017-03-13] MEDS ORDERED: OXYcodone 5 MG/5 ML ORAL.SOL UDC PO PRN (21:00)
[2017-03-13] MEDS ORDERED: HYDROcodone/APAP 7.5-325MG/15ML UDC PO PRN (21:00)
[2017-03-13] MEDS ORDERED: DIAZEPAM 5 MG/ML, 2ML IVPush PRN (21:00)
[2017-03-13] MEDS ORDERED: ACETAMINOPHEN 325 MG TABLET PO PRN (21:00)
[2017-03-13] MEDS ORDERED: EPHEDRINE 50 MG/ML, 1ML IVPush PRN (21:00)
[2017-03-13] MEDS ORDERED: MEPERIDINE/PF 25MG/0.5ML IVPush PRN (21:00)
[2017-03-13] MEDS ORDERED: LABETALOL 5MG/ML, 20ML IV PRN (21:00)
[2017-03-13] MEDS ORDERED: MIDAZOLAM 1 MG/ML, 2ML IV PRN (21:00)
[2017-03-13] MEDS ORDERED: hydrALAzine 20 MG/ML, 1ML IV PRN (21:00)
[2017-03-13] MEDS ORDERED: PROMETHAZINE 25 MG/ML, 1ML IV PRN (21:00)
[2017-03-13] MEDS ORDERED: METOPROLOL 1 MG/ML, 5ML IV PRN (21:00)
[2017-03-13] MEDS ORDERED: ALBUTEROL SULFATE 2.5 MG/3 ML NPPB PRN (21:00)
[2017-03-13] MEDS ORDERED: HYDROmorphone 2 MG/ML, 1ML ONE (21:04)
[2017-03-13] MEDS ORDERED: HYDROmorphone 1 MG/ML, 1ML ONE (21:26)
[2017-03-13] MEDS: HYDROmorphone 1 MG/ML, 1ML IV PRN ×2 (21:28→21:42)
[2017-03-13] MEDS: FENTANYL PF 100 MCG/2ML IV PRN ×2 (21:34→21:58)
[2017-03-13] MEDS ORDERED: HYDROmorphone PCA 30 MG/30 ML ONE (21:46)
[2017-03-13] MEDS ORDERED: HYDROmorphone PCA 30 MG/30 ML IV PRN (22:00)
[2017-03-13] MEDS ORDERED: SODIUM CHLORIDE 0.9% 1,000 ML IV SCH (23:00)
[2017-03-13] MEDS ORDERED: HYDROmorphone 1 MG/ML, 1ML IVPush PRN (23:00)
[2017-03-13] MEDS: FAMOTIDINE 20 MG/2 ML IVPush SCH (23:29)
[2017-03-13] MEDS: ENOXAPARIN 30 MG/0.3 ML SQ SCH (23:29)
[2017-03-13] MEDS: METRONIDAZOLE PMX 500MG/100ML 100 ML IV SCH (23:30)
[2017-03-13] MEDS ORDERED: SODIUM CHLORIDE 0.9% 500 ML IV SCH (23:30)
[2017-03-14 00:18] LABS: HEMATOCRIT 28.3 % (39.2-51.8); HEMOGLOBIN 9.7 g/dL (13.7-18.0); WHITE BLOOD COUNT 12.1 x10^3/uL (3.4-10)
[2017-03-14 02:25] VITALS: BP 92/58
[2017-03-14] MEDS ORDERED: SODIUM CHLORIDE 0.9%, 500ML IVBOLUS ONE (03:00)
[2017-03-14 04:30] VITALS: BP 99/63
[2017-03-14 05:47] LABS: BLOOD UREA NITROGEN 13 mg/dL (7-18)
[2017-03-14 05:48] LABS: HEMATOCRIT 30.1 % (39.2-51.8); HEMOGLOBIN 10.1 g/dL (13.7-18.0); WHITE BLOOD COUNT 18.8 x10^3/uL (3.4-10)
[2017-03-14 05:59] LABS: ASPARTATE AMINO TRANSFERASE 26 U/L (15-37)
[2017-03-14 06:15] LABS: DIFF TOTAL CELLS COUNTED 100 CELL DIFF
[2017-03-14 06:16] LABS: ANISOCYTOSIS 1+; VERIFY COUNTS? YES
[2017-03-14] MEDS: CEFOTETAN PMX 2GM/50ML 50 ML IV SCH ×2 (06:20→20:09)
[2017-03-14] MEDS ORDERED: SODIUM CHLORIDE 0.9% 1,000ML IVBOLUS ONE (07:30)
[2017-03-14 07:46] VITALS: BP 98/65
[2017-03-14] MEDS: NITROFURANTOIN (MACROBID) 100 MG CAPSULE PO SCH ×2 (09:00→09:38)
[2017-03-14] MEDS: METRONIDAZOLE PMX 500MG/100ML 100 ML IV SCH ×2 (09:37→16:57)
[2017-03-14] MEDS: FAMOTIDINE 20 MG/2 ML IVPush SCH ×2 (12:18→22:39)
[2017-03-14] MEDS: ENOXAPARIN 30 MG/0.3 ML SQ SCH ×2 (12:18→22:39)
[2017-03-14 14:00] VITALS: BP 95/65
[2017-03-14] MEDS: SODIUM CHLORIDE 0.9% 1,000 ML IV SCH ×2 (14:30→20:09)
[2017-03-14] MEDS ORDERED: SODIUM CHLORIDE 0.9% 1,000 ML IV SCH ×2 (19:00→21:30)
[2017-03-14] MEDS ORDERED: SODIUM CHLORIDE 0.9% 1,000 ML IV ONE (19:30)
[2017-03-14 20:03] VITALS: BP 107/60
[2017-03-15] MEDS: METRONIDAZOLE PMX 500MG/100ML 100 ML IV SCH ×3 (01:21→16:46)
[2017-03-15 02:00] VITALS: BP 94/62
[2017-03-15] MEDS: SODIUM CHLORIDE 0.9% 1,000 ML IV SCH ×2 (02:40→08:11)
[2017-03-15 04:58] LABS: HEMATOCRIT 23.2 % (39.2-51.8); HEMOGLOBIN 7.9 g/dL (13.7-18.0); WHITE BLOOD COUNT 21.2 x10^3/uL (3.4-10)
[2017-03-15 05:03] LABS: ASPARTATE AMINO TRANSFERASE 13 U/L (15-37); BLOOD UREA NITROGEN 23 mg/dL (7-18)
[2017-03-15 07:01] VITALS: BP 95/58
[2017-03-15 07:03] LABS: DIFF TOTAL CELLS COUNTED 100 CELL DIFF
[2017-03-15 07:05] LABS: VERIFY COUNTS? YES
[2017-03-15 07:06] LABS: ANISOCYTOSIS 1+
[2017-03-15] MEDS: CEFOTETAN PMX 2GM/50ML 50 ML IV SCH ×2 (08:11→20:19)
[2017-03-15] MEDS ORDERED: SODIUM CHLORIDE 0.45% 1,000 ML IV SCH ×3 (10:30→17:00)
[2017-03-15] MEDS: FAMOTIDINE 20 MG/2 ML IVPush SCH (11:13)
[2017-03-15] MEDS: ENOXAPARIN 30 MG/0.3 ML SQ SCH ×2 (11:13→23:12)
[2017-03-15 13:23] VITALS: BP 97/68
[2017-03-15] MEDS ORDERED: DEXTROSE 70% IV SCH (17:00)
[2017-03-15] MEDS ORDERED: DEXTROSE 10% 500 ML IV PRN (17:00)
[2017-03-15] MEDS ORDERED: FAT EMULSIONS IV SCH (17:00)
[2017-03-15] MEDS ORDERED: TPN PER PHARMACY IV SCH (17:00)
[2017-03-15] MEDS ORDERED: DEXTROSE 50%, 50ML SYRINGE IVPush PRN (17:00)
[2017-03-15] MEDS ORDERED: FILTER, DISP 1.2 MICRON FOR TPN/PVN IV PRN (17:00)
[2017-03-15] MEDS ORDERED: AMINO ACID 10% IV SCH (17:00)
[2017-03-15] MEDS ORDERED: [UNRECOGNIZED DRUG - OTHER] IV SCH (17:00)
[2017-03-15 18:37] VITALS: BP 116/64
[2017-03-15] MEDS: INSULIN REGULAR MEDIUM DOSE Q6H X 48HRS SQ-INSULIN SCH (20:28)
[2017-03-16] VITALS (12 sets, daily range): BP systolic 99–125; BP diastolic 58–80
[2017-03-16] MEDS: METRONIDAZOLE PMX 500MG/100ML 100 ML IV SCH ×3 (00:54→17:29)
[2017-03-16] MEDS: INSULIN REGULAR MEDIUM DOSE Q6H X 48HRS SQ-INSULIN SCH ×4 (03:00→20:13)
[2017-03-16 04:45] LABS: WHITE BLOOD COUNT 19.4 x10^3/uL (3.4-10)
[2017-03-16 04:46] LABS: BLOOD UREA NITROGEN 19 mg/dL (7-18)
[2017-03-16 04:50] LABS: HEMATOCRIT 19.8 % (39.2-51.8); HEMOGLOBIN 6.7 g/dL (13.7-18.0)
[2017-03-16 06:20] LABS: DIFF TOTAL CELLS COUNTED 100 CELL DIFF
[2017-03-16 06:22] LABS: VERIFY COUNTS? YES
[2017-03-16 06:23] LABS: ANISOCYTOSIS 1+; OVALOCYTES 1+
[2017-03-16 06:24] LABS: HYPOCHROMIA 1+
[2017-03-16] MEDS: CEFOTETAN PMX 2GM/50ML 50 ML IV SCH ×2 (08:17→20:13)
[2017-03-16 09:45] LABS: HEMATOCRIT 19.6 % (39.2-51.8); HEMOGLOBIN 6.7 g/dL (13.7-18.0)
[2017-03-16] MEDS ORDERED: FUROSEMIDE 20 MG/2 ML IV ONE (10:30)
[2017-03-16] MEDS ORDERED: POTASSIUM CHLORIDE PMX 100 ML IVPB ONE (11:30)
[2017-03-16] MEDS: ENOXAPARIN 30 MG/0.3 ML SQ SCH ×2 (11:47→23:23)
[2017-03-16] MEDS ORDERED: POTASSIUM PHOSPHATE 44 MEQ in SODIUM CHLORIDE 0.9% 500 ML IV ONE (12:00)
[2017-03-16] MEDS ORDERED: MAGNESIUM SULFATE 1 GM in SODIUM CHLORIDE 0.9% 50 ML IV ONE (12:00)
[2017-03-16] MEDS ORDERED: DEXTROSE 70% IV SCH (17:00)
[2017-03-16] MEDS ORDERED: AMINO ACID 10% IV SCH (17:00)
[2017-03-16] MEDS ORDERED: [UNRECOGNIZED DRUG - OTHER] IV SCH (17:00)
[2017-03-16] MEDS ORDERED: FAT EMULSIONS IV SCH (17:00)
[2017-03-17 00:22] VITALS: BP 106/62
[2017-03-17] MEDS: METRONIDAZOLE PMX 500MG/100ML 100 ML IV SCH ×3 (01:38→17:28)
[2017-03-17] MEDS: INSULIN REGULAR MEDIUM DOSE Q6H X 48HRS SQ-INSULIN SCH ×3 (03:33→15:00)
[2017-03-17 05:50] LABS: HEMATOCRIT 26.7 % (39.2-51.8); HEMOGLOBIN 9.4 g/dL (13.7-18.0); WHITE BLOOD COUNT 17.9 x10^3/uL (3.4-10)
[2017-03-17 05:58] LABS: BLOOD UREA NITROGEN 15 mg/dL (7-18)
[2017-03-17 07:51] VITALS: BP 112/62
[2017-03-17] MEDS: CEFOTETAN PMX 2GM/50ML 50 ML IV SCH ×2 (07:54→21:47)
[2017-03-17] MEDS ORDERED: POTASSIUM PHOSPHATE 44 MEQ in SODIUM CHLORIDE 0.9% 500 ML IV ONE (11:00)
[2017-03-17] MEDS: ENOXAPARIN 30 MG/0.3 ML SQ SCH (11:25)
[2017-03-17 14:32] VITALS: BP 121/72
[2017-03-17] MEDS ORDERED: AMINO ACID 10% IV SCH (17:00)
[2017-03-17] MEDS ORDERED: FAT EMULSIONS IV SCH (17:00)
[2017-03-17] MEDS ORDERED: DEXTROSE 70% IV SCH (17:00)
[2017-03-17] MEDS ORDERED: [UNRECOGNIZED DRUG - OTHER] IV SCH (17:00)
[2017-03-17 20:01] VITALS: BP 121/74
[2017-03-18] MEDS: ENOXAPARIN 30 MG/0.3 ML SQ SCH ×2 (00:49→13:19)
[2017-03-18 02:31] VITALS: BP 114/66
[2017-03-18] MEDS: METRONIDAZOLE PMX 500MG/100ML 100 ML IV SCH ×3 (04:27→20:44)
[2017-03-18 04:30] LABS: HEMATOCRIT 26.5 % (39.2-51.8); HEMOGLOBIN 9.1 g/dL (13.7-18.0); WHITE BLOOD COUNT 14.8 x10^3/uL (3.4-10)
[2017-03-18 04:42] LABS: BLOOD UREA NITROGEN 13 mg/dL (7-18)
[2017-03-18 04:47] LABS: ASPARTATE AMINO TRANSFERASE 18 U/L (15-37)
[2017-03-18 05:34] LABS: DIFF TOTAL CELLS COUNTED 100 CELL DIFF
[2017-03-18 05:36] LABS: ANISOCYTOSIS 1+; POIKILOCYTOSIS 1+; POLYCHROMASIA 1+; VERIFY COUNTS? YES
[2017-03-18 06:54] VITALS: BP 123/66
[2017-03-18] MEDS: INSULIN REGULAR MEDIUM DOSE QDAY SQ-INSULIN SCH (09:00)
[2017-03-18] MEDS: CEFOTETAN PMX 2GM/50ML 50 ML IV SCH ×2 (09:36→21:49)
[2017-03-18] MEDS ORDERED: SODIUM CHLORIDE 0.45% 1,000 ML IV SCH (11:06)
[2017-03-18] MEDS ORDERED: FILTER, DISP 1.2 MICRON FOR TPN/PVN IV PRN (11:30)
[2017-03-18 12:16] VITALS: BP 119/65
[2017-03-18] MEDS ORDERED: DEXTROSE 70% IV SCH (17:00)
[2017-03-18] MEDS ORDERED: [UNRECOGNIZED DRUG - OTHER] IV SCH (17:00)
[2017-03-18] MEDS ORDERED: AMINO ACID 10% IV SCH (17:00)
[2017-03-18] MEDS ORDERED: FAT EMULSIONS IV SCH (17:00)
[2017-03-18 18:26] VITALS: BP 110/68
[2017-03-19] MEDS: ENOXAPARIN 30 MG/0.3 ML SQ SCH ×2 (02:01→13:59)
[2017-03-19 03:44] VITALS: BP 130/72
[2017-03-19] MEDS: METRONIDAZOLE PMX 500MG/100ML 100 ML IV SCH ×3 (04:35→20:23)
[2017-03-19 05:53] LABS: HEMOGLOBIN 9.6 g/dL (13.7-18.0); WHITE BLOOD COUNT 16.8 x10^3/uL (3.4-10)
[2017-03-19 05:59] LABS: BLOOD UREA NITROGEN 13 mg/dL (7-18)
[2017-03-19 07:15] VITALS: BP 116/68
[2017-03-19] MEDS: INSULIN REGULAR MEDIUM DOSE QDAY SQ-INSULIN SCH (08:49)
[2017-03-19] MEDS ORDERED: SODIUM CHLORIDE 0.45% 1,000 ML IV SCH (10:01)
[2017-03-19] MEDS: CEFOTETAN PMX 2GM/50ML 50 ML IV SCH ×2 (10:01→21:38)
[2017-03-19] MEDS ORDERED: FILTER, DISP 1.2 MICRON FOR TPN/PVN IV PRN (10:30)
[2017-03-19 13:05] VITALS: BP 123/76
[2017-03-19] MEDS ORDERED: DEXTROSE 70% IV SCH (17:00)
[2017-03-19] MEDS ORDERED: [UNRECOGNIZED DRUG - OTHER] IV SCH (17:00)
[2017-03-19] MEDS ORDERED: FAT EMULSIONS IV SCH (17:00)
[2017-03-19] MEDS ORDERED: AMINO ACID 10% IV SCH (17:00)
[2017-03-19 20:34] VITALS: BP 117/69
[2017-03-20 01:52] VITALS: BP 123/71
[2017-03-20] MEDS: ENOXAPARIN 30 MG/0.3 ML SQ SCH ×2 (02:25→14:06)
[2017-03-20] MEDS: METRONIDAZOLE PMX 500MG/100ML 100 ML IV SCH ×3 (04:54→20:16)
[2017-03-20 05:37] LABS: HEMATOCRIT 28.1 % (39.2-51.8); HEMOGLOBIN 9.8 g/dL (13.7-18.0); WHITE BLOOD COUNT 17.4 x10^3/uL (3.4-10)
[2017-03-20 05:54] LABS: BLOOD UREA NITROGEN 12 mg/dL (7-18)
[2017-03-20 06:39] VITALS: BP 107/64
[2017-03-20] MEDS: INSULIN REGULAR MEDIUM DOSE QDAY SQ-INSULIN SCH (08:58)
[2017-03-20] MEDS: CEFOTETAN PMX 2GM/50ML 50 ML IV SCH ×2 (09:40→21:56)
[2017-03-20 13:50] VITALS: BP 110/72
[2017-03-20] MEDS ORDERED: FAT EMULSIONS IV SCH (17:00)
[2017-03-20] MEDS ORDERED: AMINO ACID 10% IV SCH (17:00)
[2017-03-20] MEDS ORDERED: FILTER, DISP 1.2 MICRON FOR TPN/PVN IV PRN (17:00)
[2017-03-20] MEDS ORDERED: DEXTROSE 70% IV SCH (17:00)
[2017-03-20] MEDS ORDERED: [UNRECOGNIZED DRUG - OTHER] IV SCH (17:00)
[2017-03-20 19:18] VITALS: BP 98/61
[2017-03-21] MEDS: ENOXAPARIN 30 MG/0.3 ML SQ SCH ×2 (01:22→13:00)
[2017-03-21 02:01] VITALS: BP 119/70
[2017-03-21 04:46] LABS: BLOOD UREA NITROGEN 10 mg/dL (7-18)
[2017-03-21 04:50] LABS: HEMATOCRIT 27.7 % (39.2-51.8); HEMOGLOBIN 9.4 g/dL (13.7-18.0); WHITE BLOOD COUNT 14.2 x10^3/uL (3.4-10)
[2017-03-21] MEDS: METRONIDAZOLE PMX 500MG/100ML 100 ML IV SCH ×3 (05:13→21:26)
[2017-03-21 07:45] VITALS: BP 98/69
[2017-03-21] MEDS: INSULIN REGULAR MEDIUM DOSE QDAY SQ-INSULIN SCH (09:00)
[2017-03-21] MEDS ORDERED: FILTER, DISP 1.2 MICRON FOR TPN/PVN IV PRN (09:00)
[2017-03-21] MEDS: CEFOTETAN PMX 2GM/50ML 50 ML IV SCH ×3 (10:30→22:55)
[2017-03-21 13:27] VITALS: BP 131/71
[2017-03-21] MEDS ORDERED: DEXTROSE 70% IV SCH (17:00)
[2017-03-21] MEDS ORDERED: FAT EMULSIONS IV SCH (17:00)
[2017-03-21] MEDS ORDERED: AMINO ACID 10% IV SCH (17:00)
[2017-03-21] MEDS ORDERED: [UNRECOGNIZED DRUG - OTHER] IV SCH (17:00)
[2017-03-21 19:51] VITALS: BP 99/53
[2017-03-22] MEDS: ENOXAPARIN 30 MG/0.3 ML SQ SCH ×2 (00:52→13:31)
[2017-03-22 01:28] VITALS: BP 128/77
[2017-03-22] MEDS: METRONIDAZOLE PMX 500MG/100ML 100 ML IV SCH ×3 (05:26→21:59)
[2017-03-22 05:47] LABS: HEMOGLOBIN 9.3 g/dL (13.7-18.0); WHITE BLOOD COUNT 11.8 x10^3/uL (3.4-10)
[2017-03-22 05:51] LABS: BLOOD UREA NITROGEN 10 mg/dL (7-18)
[2017-03-22 07:25] VITALS: BP 125/75
[2017-03-22] MEDS: INSULIN REGULAR MEDIUM DOSE QDAY SQ-INSULIN SCH (09:00)
[2017-03-22] MEDS: CEFOTETAN PMX 2GM/50ML 50 ML IV SCH ×2 (09:28→21:03)
[2017-03-22] MEDS ORDERED: HYDROmorphone 1 MG/ML, 1ML IVPush PRN (11:00)
[2017-03-22 13:14] VITALS: BP 131/76
[2017-03-22 20:32] VITALS: BP_SYST 103; BP_SYST 113; BP_DIAS 43; BP_DIAS 69
[2017-03-22] MEDS: OXYcodone/APAP 5/325MG TABLET PO PRN (22:16)
[2017-03-23] MEDS: ENOXAPARIN 30 MG/0.3 ML SQ SCH ×2 (01:02→12:46)
[2017-03-23 01:03] VITALS: BP 110/62
[2017-03-23] MEDS: OXYcodone/APAP 5/325MG TABLET PO PRN ×3 (04:52→21:17)
[2017-03-23] MEDS: METRONIDAZOLE PMX 500MG/100ML 100 ML IV SCH ×3 (04:52→21:52)
[2017-03-23 05:39] LABS: HEMATOCRIT 28.1 % (39.2-51.8); HEMOGLOBIN 9.5 g/dL (13.7-18.0); WHITE BLOOD COUNT 11.6 x10^3/uL (3.4-10)
[2017-03-23 05:57] LABS: BLOOD UREA NITROGEN 11 mg/dL (7-18)
[2017-03-23 07:03] VITALS: BP 108/64
[2017-03-23] MEDS: CEFOTETAN PMX 2GM/50ML 50 ML IV SCH ×2 (09:19→20:58)
[2017-03-23 13:48] VITALS: BP 111/73
[2017-03-23 19:01] VITALS: BP 110/64
[2017-03-24 01:27] VITALS: BP 117/73
[2017-03-24] MEDS: ENOXAPARIN 30 MG/0.3 ML SQ SCH ×2 (01:27→13:30)
[2017-03-24] MEDS: METRONIDAZOLE PMX 500MG/100ML 100 ML IV SCH (05:17)
[2017-03-24 05:30] LABS: HEMOGLOBIN 9.4 g/dL (13.7-18.0); WHITE BLOOD COUNT 9.8 x10^3/uL (3.4-10)
[2017-03-24 05:38] LABS: BLOOD UREA NITROGEN 10 mg/dL (7-18)
[2017-03-24 06:34] VITALS: BP 109/64
[2017-03-24 13:32] VITALS: BP 97/64
[2017-03-24 18:40] VITALS: BP 105/72
[2017-03-25] MEDS: ENOXAPARIN 30 MG/0.3 ML SQ SCH (01:13)
[2017-03-25 02:17] VITALS: BP 116/71
[2017-03-25 06:44] LABS: HEMOGLOBIN 9.2 g/dL (13.7-18.0); WHITE BLOOD COUNT 8.6 x10^3/uL (3.4-10)
[2017-03-25 06:45] VITALS: BP 103/70
[2017-03-25 06:55] LABS: BLOOD UREA NITROGEN 10 mg/dL (7-18)
[2017-03-25] MEDS ORDERED: OXYC-302 PO (11:19)
[2017-03-25 13:25] VITALS: BP 114/73
== END 2017-03-25 15:46 | disposition home health service (06) | DRG 329 ==
LOC: ED 21:37 → EDIP 23:09 → 4NOR 03-07 00:46 → DCLOUNGE 03-25 15:25
PROVIDERS: ADMIT Hospitalist; ATTEND Hospitalist
PROC: 0DBE0ZZ Excision of Large Intestine, Open Approach (ICD-10-PCS; 2017-03-13)
PROC: 0DNW0ZZ Release Peritoneum, Open Approach (ICD-10-PCS; 2017-03-13)
PROC: 0DNE0ZZ Release Large Intestine, Open Approach (ICD-10-PCS; 2017-03-13)
PROC: 0DN80ZZ Release Small Intestine, Open Approach (ICD-10-PCS; 2017-03-13)
PROC: 0DB80ZZ Excision of Small Intestine, Open Approach (ICD-10-PCS; principal; 2017-03-13 18:00)
PROC: 02HV33Z Insertion of Infusion Device into Superior Vena Cava, Percutaneous Approach (ICD-10-PCS; 2017-03-14)
PROC: 30233N1 Transfusion of Nonautologous Red Blood Cells into Peripheral Vein, Percutaneous Approach (ICD-10-PCS; 2017-03-16)
DX: K56.50 Intestinal adhesions [bands], unspecified as to partial versus complete obstruction (principal); K85.90 Acute pancreatitis without necrosis or infection, unspecified; E44.0 Moderate protein-calorie malnutrition; E87.1 Hypo-osmolality and hyponatremia; Z68.1 Body mass index [BMI] 19.9 or less, adult; D64.9 Anemia, unspecified; E83.39 Other disorders of phosphorus metabolism; E83.42 Hypomagnesemia; D47.3 Essential (hemorrhagic) thrombocythemia; E87.6 Hypokalemia; I10 Essential (primary) hypertension; R74.0 Nonspecific elevation of levels of transaminase and lactic acid dehydrogenase [LDH]; R00.0 Tachycardia, unspecified; D72.829 Elevated white blood cell count, unspecified; Z87.891 Personal history of nicotine dependence; K56.7 Ileus, unspecified
CPT/HCPCS: 36415; 36569; 74000; 74020; 74177; 74245; 74270; 76937; 77001; 80048; 80053; 81001; 82330; 82962; 83605; 83690; 83735; 84100; 84134; 84478; 85014; 85018; 85025; 85651; 86140; 86850; 86900; 86923; 87077; 87086; 87186; 88307; 96360; 96361; J0610; J1100; J1170; J1644; J1650; J2250; J2405; J2704; J2710; J3010; J3475; J3480; J3490; Q9967; C1751; J0330; J1940; J2370; J2765; J3420; J7030; J7040; P9016; S0028; S0074